=== PATIENT | male | born 1980 | race African-American/Black ===

== ENCOUNTER 2021-11-25 14:55 | Emergency (ER) | payer OTHER ==
[2021-11-25 15:01] VITALS: RESP 18; TEMP 98.1
[2021-11-25 15:30] LABS: Basophils % (A) 0 %; Eosinophils # (A) 0.2 k/uL (0-0.7); Eosinophils % (A) 1 %; HCT 45.8 % (39.0-53.0); HGB 14.9 gm/dL (13.0-17.5); Lymphocytes # (A) 1.9 k/uL (1.0-4.8); Lymphocytes % (A) 14 %; MCH 30.3 pg (25.0-35.0); MCHC 32.6 g/dL (31.0-37.0); MCV 93.2 fL (80.0-100.0); Mean Platelet Volume 7.6; Monocytes # (A) 0.7 k/uL (0-1.0); Monocytes % (A) 5 %; Neutrophils # (A) 10.8 k/uL (1.3-7.7); Neutrophils % (A) 78 %; Platelet Count 223 k/uL (150-450); RBC 4.91 m/uL (4.30-5.90); RDW 12.1 % (11.5-15.5); WBC 13.7 k/uL (3.8-10.6)
[2021-11-25 15:40] LABS: ALT 42 U/L (4-49); AST 24 U/L (17-59); African American GFR (CKD) >90 (>60 ml/min/1.73 sqM); Albumin 4.4 g/dL (3.5-5.0); Alkaline Phosphatase 73 U/L (38-126); Anion Gap 10 mmol/L; Blood Urea Nitrogen 9 mg/dL (9-20); Calcium 9.6 mg/dL (8.4-10.2); Carbon Dioxide 25 mmol/L (22-30); Chloride 103 mmol/L (98-107); Glucose 118 mg/dL (74-99); Non-African American GFR(CKD) 79 (>60 ml/min/1.73 sqM); Sodium 138 mmol/L (137-145); Total Bilirubin 0.8 mg/dL (0.2-1.3); Total Protein 7.8 g/dL (6.3-8.2)
--- NOTE | 2021-11-25 15:58 | ED ---
General Adult HPI - General Chief complaint: ENT Stated complaint: sore throat,headache,R ear pain Time Seen by Provider: 11/25/21 15:01 Source: patient, RN notes reviewed Mode of arrival: ambulatory Limitations: no limitations - History of Present Illness Initial comments: 41-year-old male presents to the emergency room for a chief complaint of sore th roat. Patient states the right side of his throat hurts and it is painful to swallow. Patient also has some right ear pain. Patient also has a mild headache. This i has been ongoing for the past couple days. He has not had any fevers that he knows of.Patient has no other complaints at this time including shortness of breath, chest pain, abdominal pain, nausea or vomiting, headache, or visual changes. - Related Data Previous Rx's Medication Instructions Recorded Amoxicillin/Potassium Clav 1 tab PO Q12HR #20 tab 11/25/21 [Augmentin 875-125 Tablet] predniSONE 50 mg PO DAILY #4 tablet 11/25/21 Allergies Allergy/AdvReac Type Severity Reaction Status Date / Time No Known Allergies Allergy Verified 11/25/21 14:58 Review of Systems ROS Statement: Those systems with pertinent positive or pertinent negative responses have been documented in the HPI. ROS Other: All systems not noted in ROS Statement are negative. Past Medical History Past Medical History: No Reported History History of Any Multi-Drug Resistant Organisms: None Reported Past Surgical History: Hernia Repair Additional Past Surgical History / Comment(s): inguinal hernia Past Psychological History: No Psychological Hx Reported Smoking Status: Current every day smoker Past Alcohol Use History: None Reported Past Drug Use History: None Reported General Exam Limitations: no limitations General appearance: alert, in no apparent distress (Well-appearing, no tripoding or drooling, resting comfortably) Head exam: Present: atraumatic Eye exam: Present: normal appearance, PERRL, EOMI. Absent: scleral icterus, conjunctival injection ENT exam: Present: normal exam, mucous membranes moist, TM's normal bilaterally, normal external ear exam. Absent: normal oropharynx (Erythematous oropharynx with some mild fullness of the right peritonsillar pillar.) Neck exam: Present: normal inspection, full ROM. Absent: tenderness Respiratory exam: Present: normal lung sounds bilaterally. Absent: respiratory distress, wheezes Cardiovascular Exam: Present: regular rate, normal rhythm, normal heart sounds GI/Abdominal exam: Present: soft, normal bowel sounds. Absent: distended, tenderness Neurological exam: Present: alert Course Vital Signs 11/25/21 14:58 Temperature 98.1 F Pulse Rate 108 H Respiratory 18 Rate Blood Pressure 143/83 O2 Sat by Pulse 100 Oximetry Medical Decision Making - Medical Decision Making Vitals are stable. Mild leukocytosis noted. CMP is unremarkable. Coronavirus and strep are negative. CT soft tissue neck showed adenoid hypertrophy with e dematous changes along the cervical mucosal space of the nasopharynx tricking down the right side into the oropharynx with bilateral palate and tonsillar hypertrophy. There is asymmetric soft tissue swelling along the right side. Airway near oh to 1.4 cm. Consider etiologies such as angioedema or tonsillitis with pharyngeal cellulitis. No barney peritonsillar abscess. I Dr. Ayers discussed this case with Dr. Whitfield. When clinically correlated CT is consistent with a peritonsillar cellulitis. Patient is not tripoding drooling or having any difficulty handling oral secretions. He can swallow just has some pain when doing so. No distress. Incidental findings were discussed. At this time patient was given a dose of IV antibiotics and steroids. He will be discharged home on oral antibiotics and oral steroids. - Lab Data Result diagrams: 11/25/21 15:23 11/25/21 15:23 Lab Results 11/25/21 11/25/21 11/25/21 Range/Units 15:23 15:23 15:23 WBC 13.7 H (3.8-10.6) k/uL RBC 4.91 (4.30-5.90) m/uL Hgb 14.9 (13.0-17.5) gm/dL Hct 45.8 (39.0-53.0) % MCV 93.2 (80.0-100.0) fL MCH 30.3 (25.0-35.0) pg MCHC 32.6 (31.0-37.0) g/dL RDW 12.1 (11.5-15.5) % Plt Count 223 (150-450) k/uL MPV 7.6 Neutrophils % 78 % Lymphocytes % 14 % Monocytes % 5 % Eosinophils % 1 % Basophils % 0 % Neutrophils # 10.8 H (1.3-7.7) k/uL Lymphocytes # 1.9 (1.0-4.8) k/uL Monocytes # 0.7 (0-1.0) k/uL Eosinophils # 0.2 (0-0.7) k/uL Basophils # 0.0 (0-0.2) k/uL Sodium 138 (137-145) mmol/L Potassium 4.0 (3.5-5.1) mmol/L Chloride 103 (98-107) mmol/L Carbon Dioxide 25 (22-30) mmol/L Anion Gap 10 mmol/L BUN 9 (9-20) mg/dL Creatinine 1.15 (0.66-1.25) mg/dL Est GFR (CKD-EPI)AfAm >90 (>60 ml/min/1.73 sqM) Est GFR (CKD-EPI)NonAf 79 (>60 ml/min/1.73 sqM) Glucose 118 H (74-99) mg/dL Calcium 9.6 (8.4-10.2) mg/dL Total Bilirubin 0.8 (0.2-1.3) mg/dL AST 24 (17-59) U/L ALT 42 (4-49) U/L Alkaline Phosphatase 73 (38-126) U/L Total Protein 7.8 (6.3-8.2) g/dL Albumin 4.4 (3.5-5.0) g/dL Coronavirus (PCR) (Not Detectd) Group A Strep Rapid Negative (Negative) 11/25/21 Range/Units 15:23 WBC (3.8-10.6) k/uL RBC (4.30-5.90) m/uL Hgb (13.0-17.5) gm/dL Hct (39.0-53.0) % MCV (80.0-100.0) fL MCH (25.0-35.0) pg MCHC (31.0-37.0) g/dL RDW (11.5-15.5) % Plt Count (150-450) k/uL MPV Neutrophils % % Lymphocytes % % Monocytes % % Eosinophils % % Basophils % % Neutrophils # (1.3-7.7) k/uL Lymphocytes # (1.0-4.8) k/uL Monocytes # (0-1.0) k/uL Eosinophils # (0-0.7) k/uL Basophils # (0-0.2) k/uL Sodium (137-145) mmol/L Potassium (3.5-5.1) mmol/L Chloride (98-107) mmol/L Carbon Dioxide (22-30) mmol/L Anion Gap mmol/L BUN (9-20) mg/dL Creatinine (0.66-1.25) mg/dL Est GFR (CKD-EPI)AfAm (>60 ml/min/1.73 sqM) Est GFR (CKD-EPI)NonAf (>60 ml/min/1.73 sqM) Glucose (74-99) mg/dL Calcium (8.4-10.2) mg/dL Total Bilirubin (0.2-1.3) mg/dL AST (17-59) U/L ALT (4-49) U/L Alkaline Phosphatase (38-126) U/L Total Protein (6.3-8.2) g/dL Albumin (3.5-5.0) g/dL Coronavirus (PCR) Not Detected (Not Detectd) Group A Strep Rapid (Negative) Disposition Clinical Impression: Dental caries, Thyroid nodule, Peritonsillar cellulitis, Pharyngitis Disposition: HOME SELF-CARE Condition: Good Instructions (If sedation given, give patient instructions): Pharyngitis (ED) Additional Instructions: Take medications as directed. Follow-up with your doctor. Return to the emergency room for any worsening symptoms. Prescriptions: Amoxicillin/Potassium Clav [Augmentin 875-125 Tablet] 1 tab PO Q12HR #20 tab predniSONE 50 mg PO DAILY #4 tablet Is patient prescribed a controlled substance at d/c from ED?: No Referrals: Eder Sequeira MD [REFERRING] - 1-2 days Tenzin Dai MD [STAFF PHYSICIAN] - 1-2 days Time of Disposition: 16:45
--- NOTE | 2021-11-25 16:30 | CT ---
EXAMINATION TYPE: CT soft tissue neck w con DATE OF EXAM: 11/25/2021 COMPARISON: None HISTORY: 41-year-old male pain, sore throat, dysphagia TECHNIQUE: Contiguous axial scanning of the soft tissues of the neck performed with IV Contrast, raul ent injected with 100 mL of Isovue 370. Coronal/sagittal reconstructions performed. CT DLP: 537.4 mGycm Automated exposure control for dose reduction was used. FINDINGS: Cystic change in the visualized upper lungs, at least moderate emphysema. 1.3 cm hypodensity within the right lobe of the thyroid gland. Further thyroid ultrasound evaluation to further characterize and determine the need for FNA. The submandibular glands are satisfactory. Parotid gland satisfactory. Visualized intracranial structures, orbits and globes, and mastoid air cells appear to layer. Adenoid tonsillar hypertrophy. Possible mucosal retention cysts measuring up to 8 mm developing on ei ther side. Within the nasopharynx. There is poorly defined edema tracking down the right-sided cervical mucosal space, for example, axia l image 56 with moderate to severe thickening of the palatine tonsils and mild edema in the right par apharyngeal space, axial image 51. No barney retropharyngeal effusion. Some airway narrowing down to 1.4 cm. Lingual tonsillar hypertrophy partially effaces the right vallecular space. Epiglottis is satisfactory. There is some thickening along the aryepiglottic folds especially on the right, axial image 41. Some reactive upper cervical lymph nodes measuring up to 1.6 cm right station 2A. Scattered dental caries involving the maxillary molars. Periapical lucencies measure up to 7 mm on th e left and 9 mm on the right. IMPRESSION: 1. ADENOID HYPERTROPHY WITH EDEMATOUS CHANGE ALONG THE CERVICAL MUCOSAL SPACE OF THE NASOPHARYNX TRAC STONEY DOWN THE RIGHT SIDE INTO THE OROPHARYNX WITH BILATERAL PALATINE TONSILLAR HYPERTROPHY, ASYMMETRI C SOFT TISSUE SWELLING ALONG THE RIGHT PARAPHARYNGEAL SPACE, HYPOPHARYNX , AND RIGHT ARYEPIGLOTTIC FO LD. THE AIRWAY IS NARROWED DOWN TO 1.4 CM. CONSIDER ETIOLOGIES SUCH ANGIOEDEMA OR TONSILLITIS WITH PHARYNGEAL CELLULITIS. NO BARNEY PERITONSILLAR OR RETROPHARYNGEAL ABSCESS IS IDENTIFIED AT THIS TIME. 2. BAD DENTAL CARIES INVOLVING RIGHT MAXILLARY MOLARS ON EITHER SIDE WITH PERIAPICAL LUCENCIES MEASUR ING UP TO 9 MM. 3. NONEMERGENT FOLLOW-UP THYROID ULTRASOUND TO ASSESS FOR UNDERLYING NODULES AND TO DETERMINE THE NEE D FOR FNA. 4. SOME REACTIVE UPPER CERVICAL LYMPH NODES ON EITHER SIDE MEASURING UP TO 1.6 CM. 5. AT LEAST MODERATE EMPHYSEMA IN THE VISUALIZED UPPER LUNGS.
[2021-11-25] MEDS ORDERED: AMPICILLIN-SULBACTAM 3 GM in SODIUM CHLORIDE 0.9% 100 ML IVPB STA (16:41)
[2021-11-25] MEDS ORDERED: DEXAMETHASONE SOD PHOSPHATE 10 MG/ML 1 ML VIAL IVP STA (16:41)
[2021-11-25 17:44] VITALS: BP 141/86; PULSE 99
== END 2021-11-25 17:44 | disposition home or self-care (01) ==
LOC: EC 14:55
DX: J02.9 Acute pharyngitis, unspecified (principal); K02.9 Dental caries, unspecified; E04.1 Nontoxic single thyroid nodule; Z20.822 Contact with and (suspected) exposure to COVID-19; F17.200 Nicotine dependence, unspecified, uncomplicated
CPT/HCPCS: 99284 ×2; 96365 ×2; 96375 ×2; 36415; 80053; 85025; 87081; 87430; 87635; 70491; J1100; J0295; Q9967

== ENCOUNTER 2024-09-21 00:44 | Emergency (ER) | payer OTHER ==
[2024-09-21 01:02] VITALS: TEMP 98.7
--- NOTE | 2024-09-21 01:04 | ED ---
Male Urogenital HPI - General Chief complaint: Urogenital Stated complaint: Urogenital Time Seen by Provider: 09/21/24 00:58 Source: patient, RN notes reviewed Mode of arrival: ambulatory Limitations: no limitations - History of Present Illness Initial comments: This is a 43-year-old male with no significant past medical history presenting to the emergency department for chief complaint of dysuria over the past 3 days. States he also noticed his urine has been darker in color. He denies odorous urine, hematuria, increase in urinary frequency or urgency, abdominal/pelvic pain, penile discharge, urogenital swelling. He denies history of urinary tract infections. Patient states that he would like to be evaluated for STIs as well. Denies history of STIs. He denies fevers, chills, nausea, vomiting. - Related Data Previous Rx's Medication Instructions Recorded Amoxicillin/Potassium Clav 1 tab PO Q12HR #20 tab 11/25/21 [Augmentin 875-125 Tablet] predniSONE 50 mg PO DAILY #4 tablet 11/25/21 Allergies Allergy/AdvReac Type Severity Reaction Status Date / Time No Known Allergies Allergy Verified 09/21/24 00:47 Review of Systems ROS Statement: Those systems with pertinent positive or pertinent negative responses have been documented in the HPI. ROS Other: All systems not noted in ROS Statement are negative. Past Medical History Past Medical History: No Reported History History of Any Multi-Drug Resistant Organisms: None Reported Past Surgical History: Hernia Repair Additional Past Surgical History / Comment(s): inguinal hernia Past Psychological History: No Psychological Hx Reported Smoking Status: Current every day smoker Past Alcohol Use History: Occasional Past Drug Use History: Marijuana General Exam Limitations: no limitations General appearance: alert, in no apparent distress Eye exam: Present: normal appearance, PERRL, EOMI. Absent: scleral icterus, conjunctival injection, periorbital swelling Respiratory exam: Present: normal lung sounds bilaterally. Absent: respiratory distress, wheezes, rales, rhonchi, stridor Cardiovascular Exam: Present: regular rate, normal rhythm, normal heart sounds. Absent: systolic murmur, diastolic murmur, rubs, gallop, clicks GI/Abdominal exam: Present: soft, normal bowel sounds. Absent: distended, tenderness, guarding, rebound, rigid Extremities exam: Present: normal inspection, full ROM, normal capillary refill. Absent: tenderness, pedal edema, joint swelling, calf tenderness Back exam: Present: normal inspection Course Vital Signs 09/21/24 09/21/24 00:45 01:58 Temperature 98.7 F 98.7 F Pulse Rate 113 H 88 Respiratory 20 19 Rate Blood Pressure 136/87 136/80 O2 Sat by Pulse 96 96 Oximetry Medical Decision Making - Medical Decision Making Was pt. sent in by a medical professional or institution (, RAUL, STEEL ESTIMATOR, urgent care, hospital, or shelter...) When possible be specific @ -No Did you speak to anyone other than the patient for history (EMS, parent, family, police, friend...)? What history was obtained from this source @ -No Did you review nursing and triage notes (agree or disagree)? Why? @ -I reviewed and agree with nursing and triage notes Were old charts reviewed (outside hosp., previous admission, EMS record, old EKG, old radiological studies, urgent care reports/EKG's, shelter records)? Report findings @ -No old charts were reviewed Differential Diagnosis (chest pain, altered mental status, abdominal pain women, abdominal pain men, vaginal bleeding, weakness, fever, dyspnea, syncope, headache, dizziness, GI bleed, back pain, seizure, CVA, palpatations, mental health, musculoskeletal)? @ -Urinary tract infection, chlamydia, gonorrhea, trichomonas, this list is not all inclusive EKG interpreted by me (3pts min.). @ -none X-rays interpreted by me (1pt min.). @ -None done CT interpreted by me (1pt min.). @ -None done U/S interpreted by me (1pt. min.). @ -None done What testing was considered but not performed or refused? (CT, X-rays, U/S, labs)? Why? @ -None What meds were considered but not given or refused? Why? @ -None Did you discuss the management of the patient with other professionals (professionals i.e. RAUL Amaro, STEEL ESTIMATOR, lab, RT, psych nurse, social worker psychiatric, mobile disc jockey, teacher, ethics officer, pillowcase cleaner)? Give summary @ -No Was smoking cessation discussed for >3mins.? @ -No Was critical care preformed (if so, how long)? @ -No Were there social determinants of health that impacted care today? How? (Homelessness, low income, unemployed, alcoholism, drug addiction, transportation, low edu. Level, literacy, decrease access to med. care, usp, rehab)? @ -No Was there de-escalation of care discussed even if they declined (Discuss DNR or withdrawal of care, Hospice)? DNR status @ -No What co-morbidities impacted this encounter? (DM, HTN, Smoking, COPD, CAD, Cancer, CVA, ARF, Chemo, Hep., AIDS, mental health diagnosis, sleep apnea, morbid obesity)? @ -None Was patient admitted / discharged? Hospital course, mention meds given and route, prescriptions, significant lab abnormalities, going to OR and other pert inent info. @ -Discharge. 43-year-old male with history and encounter for STI testing. Physical examination with no acute findings. Vitals are stable. Urinalysis no signs of infection. Patient was offered prophylaxis antibiotics to cover for sexually transmitted infections however he has declined this time states that he will return for medication ministration if his testing does result positive. Discussed with Dr. Caldera Undiagnosed new problem with uncertain prognosis? @ -No Drug Therapy requiring intensive monitoring for toxicity (Heparin, Nitro, Insulin, Cardizem)? @ -No Were any procedures done? @ -No Diagnosis/symptom? @ -dysuria, encounter for STI testing Acute, or Chronic, or Acute on Chronic? @ -acute Uncomplicated (without systemic symptoms) or Complicated (systemic symptoms)? @ -uncomplicated Side effects of treatment? @ -No Exacerbation, Progression, or Severe Exacerbation? @ -No Poses a threat to life or bodily function? How? (Chest pain, [place], [place], pneumonia, PE, COPD, DKA, ARF, appy, cholecystitis, CVA, Diverticulitis, Homicidal, Suicidal, threat to staff... and all critical care pts) @ -No - Lab Data Lab Results 09/21/24 Range/Units 01:07 Urine Color Yellow Urine Appearance Clear (Clear) Urine pH 5.5 (5.0-8.0) Ur Specific [place] 1.030 (1.001-1.035) Urine Protein 1+ H (Negative) Urine Glucose (UA) Negative (Negative) Urine Ketones 1+ H (Negative) Urine Blood Negative (Negative) Urine Nitrite Negative (Negative) Urine Bilirubin Negative (Negative) Urine Urobilinogen 2.0 (<2.0) mg/dL Ur Leukocyte Esterase Negative (Negative) Urine RBC <1 (0-5) /hpf Urine WBC 2 (0-5) /hpf Urine Mucus Few H (None) /hpf Disposition Clinical Impression: Encounter for screening examination for sexually transmitted disease, Dysuria Disposition: HOME SELF-CARE Condition: Good Instructions (If sedation given, give patient instructions): Safe Sex Practices (ED) Additional Instructions: Please return to the Emergency Department if symptoms worsen or any other concerns. Is patient prescribed a controlled substance at d/c from ED?: No Referrals: None,Stated [Primary Care Provider] - 1-2 days Time of Disposition: 01:36
[2024-09-21 01:31] LABS: Appearance,Urine Clear (Clear); Bilirubin,Urine Negative (Negative); Blood,Urine Negative (Negative); Color,Urine Yellow; Glucose,Urine (UA) Negative (Negative); Ketones,Urine 1+ (Negative); Leukocyte Esterase,Urine Negative (Negative); Mucus,Urine Few /hpf; Nitrite,Urine Negative (Negative); PH, Urine 5.5 (5.0-8.0); Protein,Urine 1+ (Negative); RBC,Urine <1 /hpf (0-5); WBC,Urine 2 /hpf (0-5)
[2024-09-21 01:59] VITALS: BP 136/80; PULSE 88; RESP 19
[2024-09-22 13:44] LABS: C. trachomatis,PCR Negative (Negative); N. gonorrhoeae,PCR Negative (Negative)
== END 2024-09-21 01:59 | disposition home or self-care (01) ==
LOC: EC 00:44
DX: Z11.3 Encounter for screening for infections with a predominantly sexual mode of transmission (principal); R30.0 Dysuria; F17.200 Nicotine dependence, unspecified, uncomplicated
CPT/HCPCS: 81001; 87491; 87591; 99283